=== PATIENT | male | born 1990 | race Caucasian/White ===

== ENCOUNTER 2016-05-16 12:09 | Emergency (ER) | payer SELFPAY ==
[~2016-05-16 12:09] MED LIST: PRED20TA PO; PROAIR HFA8.5 GM INH
[2016-05-16 12:50] VITALS: BP 145/92
[2016-05-16 13:27] LABS: OBC FLU VALID
--- NOTE | 2016-05-16 14:03 | PHYS DOC ---
Past Medical History Past Medical History: No Pertinent History Additional Past Medical Histor: pleurisy Past Surgical History: No Surgical History Additional Past Surgical Histo: right hand ORIF Smoking: Less than 1pk/day Alcohol Use: Occasionally Drug Use: Marijuana Adult General Chief Complaint Chief Complaint: Congestion HPI HPI Patient is a 26 year old male who presents with nonproductive cough and body aches for 5 days. He also has frontal headache and nasal congestion. He denies fever, shortness breath, sore throat, ear pain, vomiting, or diarrhea. He has been taking a Tylenol cold medication [id number]. He has been using his albuterol inhaler approximately once a day. He does have family members in the household who have been diagnosed with influenza. He did not receive his flu shot this season. He does not have a PCP. Review of Systems Review of Systems Constitutional: Denies fever or chills. [] Eyes: Denies change in visual acuity, redness, or eye pain. [] HENT: Denies ear pain or sore throat. Reports nasal congestion. Respiratory: Denies shortness of breath. Reports nonproductive cough. Cardiovascular: Denies chest pain, palpitations or edema. [] GI: Denies abdominal pain, nausea, vomiting, bloody stools or diarrhea. [] Musculoskeletal: Denies back pain or joint pain. Reports diffuse body aches. Integument: Denies rash or skin lesions. [] Neurologic: Denies focal weakness or sensory changes. Reports frontal headache. All systems reviewed and negative unless otherwise stated in the HPI. Allergies Allergies Allergies Coded Allergies Type Severity Reaction Last Updated Verified No Known Drug Allergies 01/25/14 No Physical Exam Physical Exam Constitutional: Well developed, well nourished, no acute distress, non-toxic appearance. [] HENT: Normocephalic, atraumatic, bilateral external ears normal, oropharynx moist, no oral exudates, nose normal. Bilateral TMs without erythema or bulging. There is mild posterior pharyngeal erythema without tonsillar edema or exudates. Bilateral nasal turbinates are mildly swollen and erythematous with purulent drainage. Eyes: PERRLA, EOMI, conjunctiva normal, no discharge. [] Neck: Normal range of motion, no tenderness, supple, no stridor. [] Cardiovascular: Heart rate regular rhythm, no murmur [] Lungs & Thorax: Bilateral breath sounds clear to auscultation without wheezes, rales, or rhonchi. Skin: Warm, dry, no erythema, no rash. [] Neurologic: Alert and oriented X 3, normal motor function, normal sensory function, no focal deficits noted. [] Psychologic: Affect normal, judgement normal, mood normal. [] Current Patient Data Vital Signs Vital Signs Date Time Temp Pulse Resp B/P Pulse Ox O2 Delivery O2 Flow Rate FiO2 05/16/16 12:50 97.8 79 14 97 Room Air 97.8 Lab Values Laboratory Tests Test 05/16/16 12:50 Influenza Type A Antigen Negative (NEGATIVE) Influenza Type B Antigen Positive (NEGATIVE) EKG EKG [] Radiology/Procedures Radiology/Procedures [] Course & Med Decision Making Course & Med Decision Making Pertinent Labs and Imaging studies reviewed. (See chart for details) [] Dragon Disclaimer Dragon Disclaimer This electronic medical record was generated, in whole or in part, using a voice recognition dictation system. Departure Departure Impression: Primary Impression: Influenza B Disposition: 01 HOME, SELF-CARE Condition: STABLE Referrals: NO PCP (PCP) Patient Instructions: Influenza, Adult, [id number] Additional Instructions: You tested positive for influenza B. This is a viral infection and antibiotics do not help. Please take Tylenol and ibuprofen for fever and pain. Use according to package instructions. Please drink lots of water to stay hydrated and get plenty of rest. Please cough in to your elbow and wash your hands frequently to help avoid spreading the flu to others. Return to the emergency department if you have high fever not responding to medication, increased difficulty breathing, or other new or concerning symptoms. NIMESH PIERSON May 16, 2016 14:03
== END 2016-05-16 14:09 | disposition home or self-care (01) ==
LOC: ER 12:09
DX: J10.1 Influenza due to other identified influenza virus with other respiratory manifestations (principal); F17.200 Nicotine dependence, unspecified, uncomplicated; F12.10 Cannabis abuse, uncomplicated
CPT/HCPCS: 87804; 99284

== ENCOUNTER 2017-06-09 12:29 | Emergency (ER) | payer SELFPAY ==
[2017-06-12] MEDS ORDERED: PROPOFOL 0 ML IV (09:16)
== END 2017-06-09 13:16 | disposition home or self-care (01) ==
LOC: ER 13:16
DX: J06.9 Acute upper respiratory infection, unspecified (principal); F12.10 Cannabis abuse, uncomplicated
CPT/HCPCS: 99283; J2704